=== PATIENT | male | born 1955 | race African-American/Black ===

== ENCOUNTER 2021-10-18 12:45 | Inpatient (IN) | payer MEDICAID ==
[~2021-10-18] VITALS: Ht 182.9 cm; Wt 106.1 kg
[2021-10-18 15:42] LABS: CLARITY URINE CLEAR (CLEAR); COLOR URINE YELLOW (YELLOW); KETONES URINE TRACE (NEGATIVE); LEUKOCYTE ESTERASE URINE NEGATIVE (NEGATIVE); NITRITE URINE NEGATIVE (NEGATIVE); OCCULT BLOOD URINE TRACE (NEGATIVE); PH URINE 6.5 (4.5-8.0); PROTEIN URINE 3+ (NEGATIVE); SPECIFIC GRAVITY URINE 1.016 (1.005-1.030)
[2021-10-18 15:46] LABS: HEMATOCRIT. 39.7 % (42.0-52.0); HEMOGLOBIN. 13.3 g/dL (14.0-18.0); MEAN CORPUSCULAR HEMOGLOBIN 30.5 pg (28.0-32.0); MEAN CORPUSCULAR VOLUME 91.1 fL (80.0-94.0); MEAN PLATELET VOLUME 11.5 fl (7.4-10.4); PLATELET 188 x1000/uL (130-400); RED BLOOD CELL COUNT 4.36 mill/uL (4.7-6.1); RED CELL DISTRIBUTION WIDTH 14.3 % (11.6-14.6)
[2021-10-18 15:54] LABS: CHLORIDE 106 mEq/L (98-107)
[2021-10-18] MEDS ORDERED: LABETALOL 5MG/ML SYR 20 MG/4 ML SYRINGE IV ONE ×2 (16:00→19:30)
[2021-10-18 16:05] LABS: ETHANOL BLOOD < 10 mg/dL
[2021-10-18] MEDS ORDERED: ASPIRIN 325MG EC TABLET PO ONE (16:45)
[2021-10-18] MEDS ORDERED: POTASSIUM CHLORIDE 20MEQ TABLET SR PO ONE (16:45)
[2021-10-18 16:55] LABS: *AMPHETAMINES SCREEN URINE NEGATIVE (NEGATIVE); *BARBITURATES SCREEN URINE NEGATIVE (NEGATIVE); *BENZODIAZEPINES SCREEN URINE NEGATIVE (NEGATIVE); *COCAINE SCREEN URINE NEGATIVE (NEGATIVE); CANNABINOID URINE SCREEN NEGATIVE (NEGATIVE); METHADONE URINE SCREEN NEGATIVE (NEGATIVE); OPIATES URINE SCREEN NEGATIVE (NEGATIVE); PHENCYCLIDINE URINE SCREEN NEGATIVE (NEGATIVE)
[2021-10-18 18:20] LABS: PLATELET ESTIMATE NORMAL
[2021-10-18] MEDS ORDERED: DOCUSATE SODIUM 100MG CAPSULE PO PRN (19:30)
[2021-10-18] MEDS ORDERED: IPRATROPIUM/ALBUTEROL 0.5-3(2.5)MG/3ML NEB HHN PRN (19:30)
[2021-10-18] MEDS ORDERED: MAGNESIUM/ALUMINUM HYDROXIDE/SIMETHICONE 30ML UDC PO PRN (19:30)
[2021-10-18] MEDS ORDERED: GUAIFENESIN 200MG/10ML SUGAR FREE UDC PO PRN (19:30)
[2021-10-18] MEDS ORDERED: HYDROCODONE/ACETAMINOPHEN 5/325MG TABLET PO PRN (19:30)
[2021-10-18] MEDS ORDERED: MORPHINE SULFATE 2 MG/ML CPJ (NOT FOR IM USE) IV PRN (19:30)
[2021-10-18] MEDS: AMLODIPINE 2.5MG TABLET PO NR ×2 (20:10→21:12)
[2021-10-18] MEDS ORDERED: CLOPIDOGREL 75MG TABLET PO NR (20:45)
[2021-10-18] MEDS ORDERED: AMLODIPINE 2.5MG TABLET PO ONE (20:45)
[2021-10-18] MEDS ORDERED: ENALAPRIL 1.25MG/ML VIAL 1ML IV NR (21:00)
[2021-10-18] MEDS ORDERED: MAGNESIUM 2 G PREMIX 50 ML IV NR (21:00)
[2021-10-18] MEDS: ATORVASTATIN CALCIUM 40MG TABLET PO SCH (21:12)
[2021-10-18 23:00] VITALS: BP 182/120
[2021-10-19] VITALS (8 sets, daily range): BP systolic 117–209; BP diastolic 70–120
[2021-10-19] MEDS: ENOXAPARIN 40MG/0.4ML SYR SUBCUT SCH ×2 (01:57→21:30)
[2021-10-19] MEDS ORDERED: HYDRALAZINE 20MG/ML VIAL IV PRN (03:45)
[2021-10-19] MEDS ORDERED: ENALAPRIL 2.5MG/2ML VIAL 2ML IV SCH (04:00)
[2021-10-19 08:32] LABS: HEMATOCRIT. 37.2 % (42.0-52.0); HEMOGLOBIN. 12.3 g/dL (14.0-18.0); MEAN CORPUSCULAR HEMOGLOBIN 30.2 pg (28.0-32.0); MEAN CORPUSCULAR VOLUME 91.3 fL (80.0-94.0); MEAN PLATELET VOLUME 11.8 fl (7.4-10.4); PLATELET 165 x1000/uL (130-400); RED BLOOD CELL COUNT 4.08 mill/uL (4.7-6.1); RED CELL DISTRIBUTION WIDTH 14.6 % (11.6-14.6)
[2021-10-19] MEDS: ASPIRIN 81MG EC TABLET PO SCH (08:36)
[2021-10-19 08:46] LABS: CHLORIDE 107 mEq/L (98-107)
[2021-10-19 08:57] LABS: CREATINE KINASE 123 IU/L (39-308); HDL CHOLESTEROL 61 mg/dL (40-59); LDL CHOLESTEROL 135 mg/dL (5-100)
[2021-10-19] MEDS ORDERED: AMLODIPINE 2.5MG TABLET PO SCH (09:00)
[2021-10-19] MEDS: SODIUM CHL 0.45% + KCL 20MEQ/L 1,000 ML IV SCH ×2 (10:50→23:51)
[2021-10-19 12:32] LABS: PLATELET ESTIMATE NORMAL
[2021-10-19] MEDS ORDERED: CLONIDINE 0.1MG TABLET PO NR (14:45)
[2021-10-19] MEDS ORDERED: NALOXONE HCL 0.4MG/ML VIAL IV PRN (15:15)
[2021-10-19] MEDS: ATORVASTATIN CALCIUM 40MG TABLET PO SCH (21:29)
[2021-10-19] MEDS: CLONIDINE 0.1MG TABLET PO SCH (21:29)
[2021-10-19] MEDS: AMLODIPINE 5MG TABLET PO SCH (21:39)
[2021-10-19] MEDS ORDERED: ENALAPRIL 1.25MG/ML VIAL 1ML IV NR (22:00)
[2021-10-19 23:03] LABS: T4 FREE 0.97 ng/dL (0.76-1.46)
[2021-10-20] VITALS: BP 166/93
[2021-10-20 04:00] VITALS: BP 174/95
[2021-10-20] MEDS: CLONIDINE 0.1MG TABLET PO SCH ×3 (05:39→21:22)
[2021-10-20 06:59] LABS: PHOSPHORUS 2.8 mg/dL (2.5-4.9)
[2021-10-20 07:07] LABS: HEMATOCRIT. 39.3 % (42.0-52.0); HEMOGLOBIN. 12.9 g/dL (14.0-18.0); MEAN CORPUSCULAR HEMOGLOBIN 30.2 pg (28.0-32.0); MEAN CORPUSCULAR VOLUME 91.7 fL (80.0-94.0); MEAN PLATELET VOLUME 11.9 fl (7.4-10.4); PLATELET 171 x1000/uL (130-400); RED BLOOD CELL COUNT 4.28 mill/uL (4.7-6.1); RED CELL DISTRIBUTION WIDTH 14.5 % (11.6-14.6)
[2021-10-20 07:23] LABS: FOLIC ACID (FOLATE) SERUM 16.4 ng/mL (>5.38)
[2021-10-20 08:10] VITALS: BP 174/110
[2021-10-20] MEDS: AMLODIPINE 5MG TABLET PO SCH ×2 (09:11→21:22)
[2021-10-20] MEDS: CLOPIDOGREL 75MG TABLET PO SCH (09:11)
[2021-10-20] MEDS: ASPIRIN 81MG EC TABLET PO SCH (09:11)
[2021-10-20] MEDS ORDERED: POTASSIUM CHLORIDE 20MEQ TABLET SR PO NR (09:30)
[2021-10-20] MEDS: HYDRALAZINE HCL 50MG TABLET PO SCH ×3 (10:00→17:47)
[2021-10-20 12:00] VITALS: BP 165/98
[2021-10-20] MEDS: SODIUM CHL 0.45% + KCL 20MEQ/L 1,000 ML IV SCH (12:18)
[2021-10-20 16:00] VITALS: BP 181/110
[2021-10-20] MEDS: HYDRALAZINE 20MG/ML VIAL IV PRN (16:24)
[2021-10-20 20:00] VITALS: BP 165/83
[2021-10-20] MEDS: ENOXAPARIN 40MG/0.4ML SYR SUBCUT SCH (21:22)
[2021-10-20] MEDS: ATORVASTATIN CALCIUM 40MG TABLET PO SCH (21:22)
[2021-10-21] VITALS (7 sets, daily range): BP systolic 123–183; BP diastolic 85–112
[2021-10-21] MEDS: HYDRALAZINE HCL 50MG TABLET PO SCH ×4 (00:24→20:22)
[2021-10-21] MEDS: SODIUM CHL 0.45% + KCL 20MEQ/L 1,000 ML IV SCH ×3 (00:24→23:22)
[2021-10-21] MEDS: CLONIDINE 0.1MG TABLET PO SCH ×4 (05:01→23:22)
[2021-10-21 07:09] LABS: HEMATOCRIT. 38.5 % (42.0-52.0); HEMOGLOBIN. 12.7 g/dL (14.0-18.0); MEAN CORPUSCULAR HEMOGLOBIN 30.2 pg (28.0-32.0); MEAN CORPUSCULAR VOLUME 91.4 fL (80.0-94.0); MEAN PLATELET VOLUME 11.6 fl (7.4-10.4); PLATELET 165 x1000/uL (130-400); RED BLOOD CELL COUNT 4.21 mill/uL (4.7-6.1); RED CELL DISTRIBUTION WIDTH 14.4 % (11.6-14.6)
[2021-10-21 07:46] LABS: PLATELET ESTIMATE NORMAL
[2021-10-21] MEDS: CLOPIDOGREL 75MG TABLET PO SCH (09:17)
[2021-10-21] MEDS: AMLODIPINE 5MG TABLET PO SCH ×2 (09:18→20:21)
[2021-10-21] MEDS: ASPIRIN 81MG EC TABLET PO SCH (09:18)
[2021-10-21] MEDS: HYDRALAZINE 20MG/ML VIAL IV PRN (09:20)
[2021-10-21] MEDS ORDERED: POTASSIUM CHLORIDE 20MEQ TABLET SR PO NR (11:30)
[2021-10-21] MEDS ORDERED: LORAZEPAM 2MG/ML CPJ IV NR (11:45)
[2021-10-21] MEDS: CARVEDILOL 3.125 MG TABLET PO SCH ×2 (11:46→20:21)
[2021-10-21 14:24] LABS: PLATELET ESTIMATE NORMAL
[2021-10-21] MEDS: ATORVASTATIN CALCIUM 40MG TABLET PO SCH (20:21)
[2021-10-21] MEDS: ENOXAPARIN 40MG/0.4ML SYR SUBCUT SCH (20:22)
[2021-10-22] VITALS (7 sets, daily range): BP systolic 139–166; BP diastolic 83–104
[2021-10-22] MEDS: CLONIDINE 0.1MG TABLET PO SCH ×3 (05:01→17:12)
[2021-10-22] MEDS: HYDRALAZINE HCL 50MG TABLET PO SCH ×2 (05:01→14:13)
[2021-10-22 08:06] LABS: HEMOGLOBIN. 13.5 g/dL (14.0-18.0); MEAN CORPUSCULAR HEMOGLOBIN 31.4 pg (28.0-32.0); MEAN CORPUSCULAR VOLUME 90.6 fL (80.0-94.0); MEAN PLATELET VOLUME 11.9 fl (7.4-10.4); PLATELET 166 x1000/uL (130-400); RED CELL DISTRIBUTION WIDTH 14.6 % (11.6-14.6)
[2021-10-22] MEDS: CLOPIDOGREL 75MG TABLET PO SCH (08:43)
[2021-10-22] MEDS: CARVEDILOL 3.125 MG TABLET PO SCH (08:43)
[2021-10-22] MEDS: ASPIRIN 81MG EC TABLET PO SCH (08:43)
[2021-10-22] MEDS: AMLODIPINE 5MG TABLET PO SCH (08:44)
[2021-10-22] MEDS ORDERED: POTASSIUM CHLORIDE 20MEQ/PACKET PO NR (09:45)
[2021-10-22 13:30] LABS: PLATELET ESTIMATE NORMAL
[2021-10-22] MEDS ORDERED: CARVEDILOL 6.25 MG TABLET PO SCH (17:00)
[2021-10-22] MEDS ORDERED: CLOP75TA15 PO (17:38)
[2021-10-22] MEDS ORDERED: LIP40 PO (17:38)
[2021-10-22] MEDS ORDERED: LOSA100T32 MT (17:38)
[2021-10-22] MEDS ORDERED: AMLO5TAB88 PO (17:38)
[2021-10-22] MEDS ORDERED: HYDR-4135 PO (17:38)
[2021-10-22] MEDS ORDERED: COR6 PO (17:38)
== END 2021-10-22 21:10 | disposition home or self-care (01) | DRG 45 ==
LOC: ER 12:45 → EDBEDREQ 16:39 → 8WST 18:28 → EDBEDREQSVC 18:41 → EDBEDREQTM 18:41 → EDBEDREQ 18:41 → CANRESERV 19:47 → ENRESERV 19:47 → EDBEDREQSVC 20:07 → EDBEDREQTM 20:07 → ENRESERV 20:32
PROVIDERS: ADMIT Family Medicine Adult Medicine; ATTEND Family Medicine Adult Medicine
DX: I63.9 Cerebral infarction, unspecified (principal); N17.9 Acute kidney failure, unspecified; I42.9 Cardiomyopathy, unspecified; D70.9 Neutropenia, unspecified; G81.91 Hemiplegia, unspecified affecting right dominant side; E11.22 Type 2 diabetes mellitus with diabetic chronic kidney disease; I12.9 Hypertensive chronic kidney disease with stage 1 through stage 4 chronic kidney disease, or unspecified chronic kidney disease; I16.1 Hypertensive emergency; E86.0 Dehydration; E87.6 Hypokalemia; I10 Essential (primary) hypertension; R29.810 Facial weakness; D35.2 Benign neoplasm of pituitary gland; E78.5 Hyperlipidemia, unspecified; E78.00 Pure hypercholesterolemia, unspecified; N18.9 Chronic kidney disease, unspecified; D36.9 Benign neoplasm, unspecified site; R47.1 Dysarthria and anarthria; R26.9 Unspecified abnormalities of gait and mobility; I44.0 Atrioventricular block, first degree; Z79.02 Long term (current) use of antithrombotics/antiplatelets; Z82.3 Family history of stroke; Z79.899 Other long term (current) drug therapy; Z96.659 Presence of unspecified artificial knee joint
CPT/HCPCS: 36415; 70544; 70551; 70553; 71045; 80048; 80053; 80061; 80305; 80320; 81003; 82550; 82607; 82746; 83036; 83735; 83880; 84100; 84439; 84443; 84481; 84484; 85025; 92610; 93005; 93306; 93880; 93970; 97162; 97166; 99291; J0360; J1650; J2060; J3475; J3480; J3490; G0480